=== PATIENT | female | born 1965 | race Caucasian/White ===

== ENCOUNTER 2017-01-31 15:12 | Emergency (ER) | payer SELFPAY ==
[2017-01-31] MEDS ORDERED: Ketorolac Tromethamine 60 MG/2 ML VIAL ONE (15:40)
--- NOTE | 2017-01-31 16:07 | RAD ---
PA AND LATERAL VIEWS CHEST: 01/31/17 HISTORY: Injury, chest pain. FINDINGS: The heart size is normal. No focal areas of consolidation, pneumothorax or racheal pulmonary edema or p leural effusions are seen. No acute osseous abnormalities are identified. IMPRESSION: No radiographic evidence of acute cardiopulmonary process. POS: [facility]
--- NOTE | 2017-01-31 16:14 | RAD ---
LEFT RIBS THREE VIEWS: 01/31/17 HISTORY: Fall, left chest pain. FINDINGS/IMPRESSION: No definite left rib fracture is seen. POS: [id number]
== END 2017-01-31 16:48 | disposition home or self-care (01) ==
LOC: NAV ERS 15:12
DX: S29.9XXA Unspecified injury of thorax, initial encounter (principal); F17.210 Nicotine dependence, cigarettes, uncomplicated; W01.0XXA Fall on same level from slipping, tripping and stumbling without subsequent striking against object, initial encounter
CPT/HCPCS: 71020; 96372; J1885

== ENCOUNTER 2023-10-24 20:13 | Emergency (ER) | payer OTHER, SELFPAY ==
[2023-10-24] MEDS ORDERED: Apixaban 5 MG TAB ONE ×2 (20:18→20:36)
== END 2023-10-24 21:09 | disposition home or self-care (01) ==
LOC: NAV ERS 20:13
DX: I82.431 Acute embolism and thrombosis of right popliteal vein (principal); F17.210 Nicotine dependence, cigarettes, uncomplicated
CPT/HCPCS: 99283